=== PATIENT | male | born 1980 | race Caucasian/White ===

== ENCOUNTER 2018-09-16 21:17 | Emergency (ER) | payer SELFPAY ==
[~2018-09-16] VITALS: Ht 162.6 cm; Wt 76.2 kg
[2018-09-16 21:24] VITALS: BP 153/72
[2018-09-17] MEDS ORDERED: cefTRIAXone 500 MG in LIDOCAINE MPF 1% - 5 mL VIAL 1 ML IM ONE (00:55)
[2018-09-17] MEDS ORDERED: AZITHROMYCIN 250 MG TAB PO ONE (00:55)
[2018-09-17] MEDS ORDERED: HYDROcodone/APAP 10/325 MG 1 TAB TAB PO ONE (00:55)
[2018-09-17 02:04] VITALS: BP 119/70
== END 2018-09-17 01:50 | disposition home or self-care (01) ==
LOC: MED 21:17
DX: N45.3 Epididymo-orchitis (principal)
CPT/HCPCS: 76870; 96372; 99284; J0696; J2001; Q0092